=== PATIENT | female | born 1935 ===

== ENCOUNTER 2021-04-16 15:21 | Outpatient (CLI) | payer MEDICARE, BC ==
[~2021-04-16] VITALS: Ht 167.6 cm; Wt 64.8 kg
[2021-04-16] MEDS ORDERED: CALCIUM CARBON650 M2 PO (15:48)
[2021-04-16] MEDS ORDERED: MASON NATURAL2000 IU PO (15:49)
[2021-04-16] MEDS ORDERED: PARCOPA 25/101 UDTAB PO (15:51)
[2021-04-16 15:53] VITALS: BP 135/64; PULSE 56; TEMP 98.1
[2021-04-16] MEDS ORDERED: LEVOXYL0.112 MG PO (16:26)
[2021-04-16] MEDS ORDERED: NATURAL IRON65 MG PO (16:26)
[2021-04-16] MEDS ORDERED: NORVASC 10MG10 MG PO (16:27)
[2021-04-16] MEDS ORDERED: B COMPLEX & B121 TAB PO (16:28)
== END 2021-04-16 16:29 | disposition home or self-care (01) ==
LOC: EUO 15:21
DX: M81.0 Age-related osteoporosis without current pathological fracture (principal)
CPT/HCPCS: J0897

== ENCOUNTER 2021-08-15 10:10 | Outpatient (CLI) | payer MEDICARE, BC ==
[2021-08-15] VITALS (7 sets, daily range): BP systolic 122–129; BP diastolic 51–62; PULSE 56–67; TEMP 99.5
[~2021-08-15] VITALS: Ht 167.6 cm; Wt 68.0 kg
[~2021-08-15 10:10] MED LIST: B COMPLEX & B121 TAB PO; CALCIUM CARBON650 M2 PO; LEVOXYL0.112 MG PO; MASON NATURAL2000 IU PO; NATURAL IRON65 MG PO; NORVASC 10MG10 MG PO; PARCOPA 25/101 UDTAB PO
[2021-08-15] MEDS ORDERED: CALTRATE-600 W600 MG PO (11:43)
--- NOTE | 2021-08-15 13:09 | NUR ---
Pt tolerated infusion without issue. She was assisted to restroom prior to departing. 1 hr obs time completed. INT Dc'd with catheter intact. She was assisted out to web developer's car by wheelchair.
[2021-08-16] MEDS ORDERED: SYNTHROID0.1 MG/TAB PO (20:22)
== END 2021-08-15 13:44 | disposition home or self-care (01) ==
LOC: EUO 10:10
DX: J02.9 Acute pharyngitis, unspecified (principal)
CPT/HCPCS: Q0244

== ENCOUNTER 2021-08-16 14:25 | Observation (INO) | payer MEDICARE, BC ==
[~2021-08-16] VITALS: Ht 167.6 cm; Wt 64.7 kg
[~2021-08-16 14:25] MED LIST changes: +CALTRATE-600 W600 MG PO
[2021-08-16 14:44] LABS: HEMOGLOBIN 11.6 g/dl (12.5-16.0); MEAN CELL VOLUME 99 fl (80.0-100.0); MEAN CORPUSCULAR HEMOGLOBIN 33 pg (27.0-31.0); MEAN CORPUSCULAR HGB CONC 33 g/dl (33.0-37.0); MEAN PLATELET VOLUME 9.5 fl (7.4-10.4); PLATELET COUNT 226 K/mm3 (130-400); RED BLOOD COUNT 3.51 M/mm3 (4.10-5.30); REDCELL DISTRIBUTION WIDTH-CV 12.7 % (11.5-14.5)
[2021-08-16 14:46] LABS: HEMATOCRIT 34.7 % (37.0-47.0)
[2021-08-16 15:03] LABS: ALBUMIN 2.8 gm/dL (3.4-4.8); BILIRUBIN,TOTAL 0.5 mg/dL (0.2-1.2); CREATININE, serum 1.3 mg/dL (0.57-1.11); POTASSIUM 4.2 mmol/L (3.5-4.5); TOTAL PROTEIN 6.4 gm/dL (6.2-8.1)
[2021-08-16 15:09] LABS: BAND 2 % (0-10); LYMPHOCYTE 18 % (20.0-51.0); NEUTROPHILS 78 % (42.0-75.2); PLATELET ESTIMATE NORMAL (NORMAL)
[2021-08-16 15:10] LABS: ARTERIAL BLD GAS O2 SATURATION 92.6 % (92-100); ARTERIAL BLOOD GAS BASE EXCESS 1.4 (-2-2); ARTERIAL BLOOD GAS PCO2 32.2 mmHg (35-45); ARTERIAL BLOOD GAS PO2 63.1 mmHg (80-100); ARTERIAL BLOOD GAS pH 7.49 (7.35-7.45)
[2021-08-16 19:52] LABS: COLLECTION METHOD CLEAN CATCH
[2021-08-16 20:01] VITALS: BP 120/56; PULSE 59; TEMP 98.4
[2021-08-16 20:02] LABS: PH 5 (5-8); URINE APPEARANCE Hazy; URINE BACTERIA Rare /hpf; URINE BILIRUBIN Negative (NEGATIVE); URINE BLOOD Negative (NEGATIVE); URINE COLOR Yellow; URINE GLUCOSE Negative (NEGATIVE); URINE KETONE Trace (NEGATIVE); URINE LEUKOCYTE ESTERASE 2+ (NEGATIVE); URINE NITRATE Positive (NEGATIVE); URINE PROTEIN(semi-quant) Negative (NEGATIVE); URINE RBC 0-2 /hpf; URINE UROBILINOGEN Negative (NEGATIVE)
[2021-08-16] MEDS ORDERED: SYNTHROID0.1 MG/TAB PO (20:22)
--- NOTE | 2021-08-16 21:52 | NUR ---
Patient arrived to medical unit from ER at approximately 1999. Alert and oriented. Denies pain and discomfort. Patient has parkinsons and is slow to respond at times, and also hard of hearing. Peripheral INT to right forearm. LS CTA in upper lobes, diminished in lower. Denies SOB and dyspnea. Telemetry in place. Went over med rec with daughter, and notified RODRIGO Salazar that it was up to date. Voices no questions, needs, or concerns at this time. Daughter CARLY Chandler updated on patient as well. (daughter is also a patient in the hospital at this time)
[2021-08-16 22:27] VITALS: BP 122/60; PULSE 60; TEMP 97.6; TEMP 98.6
[2021-08-17 05:07] VITALS: BP 120/53; PULSE 59; TEMP 97.7
--- NOTE | 2021-08-17 05:53 | NUR ---
Patient continues on room air. Denies having pain and discomfort. IV fluids continue per orders. In bed with call light within reach.
--- NOTE | 2021-08-17 12:01 | NUR ---
THIS RN IS TAKING OVER CARE FOR THIS PT. REPORT RECEIVED FROM JERAMY ALVARADO.
[2021-08-17 12:22] VITALS: BP 126/62; PULSE 60; TEMP 98.3
[2021-08-17 12:55] LABS: CALCIUM 8.1 mg/dL (8.4-10.2); CREATININE, serum 0.91 mg/dL (0.57-1.11); POTASSIUM 4.4 mmol/L (3.5-4.5)
[2021-08-17 16:00] VITALS: BP 119/59; PULSE 66; TEMP 97.6
--- NOTE | 2021-08-17 16:21 | NUR ---
SUSHANT called daughter Blanca [phone] who is also patient's DPOA-HC to complete intake. Daughter stated her mother just recently moved into her home in [facility] from [place]. PCP is Dr. Mathew and pharmacy is [facility]. Daughter states that she is currently paying for a private service resource to assist with her mom in her home. She also states that the plan is for her to return back to her home upon DC, unless recommended skilled services are needed. Would like to be in consistent contact with case management team about next steps and care. SUSHANT will continue to follow. DC plan: home with daughter/unless skilled/LTC services are recommended
--- NOTE | 2021-08-17 19:00 | NUR ---
RECEIVED CHANGE OF SHIFT REPORT FROM DAY SHIFT NURSE.
[2021-08-17 21:11] VITALS: BP 116/51; PULSE 60; TEMP 98.1
[2021-08-17 23:41] VITALS: BP 113/43; PULSE 58; TEMP 98
--- NOTE | 2021-08-18 05:00 | NUR ---
PER TELE, TECH REPORTS RHYTHM CHANGED TO AFIB WITH RATES IN 60'S SINCE 429. SEE MEDITECH FOR VS, DENIES CHEST PAIN/SOA WITH LOTS OF PROMPTING FOR ANSWERS, SKIN WARM, NO LABORED RESP EFFORT, COLOR UNCHANGED FROM EARLIER ASSESSMENT.
[2021-08-18 05:14] VITALS: BP 108/48; PULSE 68; TEMP 98.1
[2021-08-18 06:18] LABS: HEMOGLOBIN 10.7 g/dl (12.5-16.0); MEAN CELL VOLUME 99 fl (80.0-100.0); MEAN CORPUSCULAR HEMOGLOBIN 33 pg (27.0-31.0); MEAN CORPUSCULAR HGB CONC 33 g/dl (33.0-37.0); MEAN PLATELET VOLUME 10.3 fl (7.4-10.4); PLATELET COUNT 232 K/mm3 (130-400); RED BLOOD COUNT 3.24 M/mm3 (4.10-5.30); REDCELL DISTRIBUTION WIDTH-CV 12.5 % (11.5-14.5)
[2021-08-18 06:23] LABS: HEMATOCRIT 32.2 % (37.0-47.0)
[2021-08-18 06:54] LABS: CALCIUM 7.9 mg/dL (8.4-10.2); CREATININE, serum 0.78 mg/dL (0.57-1.11); POTASSIUM 4.3 mmol/L (3.5-4.5)
--- NOTE | 2021-08-18 07:10 | NUR ---
CHANGE OF SHIFT REPORT GIVEN TO DAY SHIFT NURSETANO RN.
[2021-08-18 07:21] LABS: BAND 5 % (0-10); LYMPHOCYTE 16 % (20.0-51.0); METAMYELOCYTE 1 % (0-0); NEUTROPHILS 69 % (42.0-75.2); PLATELET ESTIMATE NORMAL (NORMAL)
[2021-08-18 08:24] VITALS: BP 118/63; PULSE 84; TEMP 98
--- NOTE | 2021-08-18 10:26 | NUR ---
NOTIFIED DR. 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
--- NOTE | 2021-08-18 10:28 | NUR ---
PT ALERT, ORIENTED TO PERSON. UNABLE TO ANSWER TO TIME. DISORIENTED TO PLACE AND SITUATION. PT REORIENTED TO BEST OF ABILITY. PT WEAK, UNABLE TO FEED SELF. PT ABLE TO SWALLOW PILLS WITH VERBAL CUES. 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 INSPECTOR ALIGNING NOTED TO BE IN A-FIB NEW OVERNIGHT. PT TREMORS NOTED IN HANDS. PT HAS SOFT ABDOMEN, SENSITIVE TO TOUCH IN LEFT UPPER QUADRANT. PT RIGHT WRIST IV INFILTRATION NOTED. THIS RN AIDED IN FEEDING PT. NO OTHER NEEDS AT THIS TIME.
--- NOTE | 2021-08-18 11:07 | NUR ---
Pt daughter, Geraldine updated on patient status. Verified person of contact in pt chart and DPOA status per social work notes. Privacy password given for future updates. Geraldine states leaving note of patient preferences for food and number ([phone]).
[2021-08-18 11:35] VITALS: BP 113/51; PULSE 74; TEMP 98.1
--- NOTE | 2021-08-18 12:08 | NUR ---
PARTIAL BED BATH GIVEN AND NEW GOWN ON PATIENT.
--- NOTE | 2021-08-18 15:55 | NUR ---
PT/OT are recommending SNF. The patient is observation status and COVID positive. IPR was consulted. Bessie, with IPR, reports that they are able to accept the patient today. SUSHANT contacted and updated the patient's daughter, Geraldine. Geraldine is in agreement to the plan. The patient is to discharge today, 08/18, to [facility]. No additional needs at this time.
[2021-08-18 16:30] VITALS: BP 107/50; PULSE 71; TEMP 98.1
[2021-08-18] MEDS ORDERED: DECADRON6 MG PO (16:41)
[2021-08-18] MEDS ORDERED: ZOFRAN ODT4 MG PO (16:41)
[2021-08-18] MEDS ORDERED: ROCEPHIN VIA1 G/VIAL IV (16:41)
[2021-08-18 16:42] VITALS: BP 115/54
[2021-08-18] MEDS ORDERED: RT Albuterol HFA MDI IH (16:42)
[2021-08-18] MEDS ORDERED: HEPARIN SOD5000 U/ML SQ (16:42)
[2021-08-18] MEDS ORDERED: TYLENOL 325MG325 MG PO (16:42)
[2021-08-18] MEDS ORDERED: MONODOX100 PO (16:42)
--- NOTE | 2021-08-18 16:42 | NUR ---
PT BLOOD PRESSURE LOW ON RIGHT SIDE,107/5, RECHECKED ON LEFT ARM 115/54.
--- NOTE | 2021-08-18 17:02 | NUR ---
AIDED IN PT CALLING DAUGHTER.
--- NOTE | 2021-08-18 17:03 | NUR ---
RECEIVED ORDERS FOR DISCHARGING PT TO IPR STATUS. DISCUSSED WITH DR. STEPHENS AND JAREK EVANGELISTA RN. DISCHARGE PROCESS INITIATED.
== END 2021-08-18 17:04 ==
LOC: COL.ER 14:25 → MEDICAL 19:03 → EDBEDREQTM 19:15 → MEDICAL 08-18 17:04
PROVIDERS: Family Medicine; ADMIT Student in an Organized Health Care Education/Training Program
DX: U07.1 COVID-19 (principal); R63.0 Anorexia; N39.0 Urinary tract infection, site not specified; B96.29 Other Escherichia coli [E. coli] as the cause of diseases classified elsewhere; N17.9 Acute kidney failure, unspecified; G20 Parkinson's disease; I48.91 Unspecified atrial fibrillation; I10 Essential (primary) hypertension; D64.9 Anemia, unspecified; E03.9 Hypothyroidism, unspecified; G73.7 Myopathy in diseases classified elsewhere; Z79.890 Hormone replacement therapy; Z79.899 Other long term (current) drug therapy
CPT/HCPCS: 99233-AI; G0378; J0696; J1100; J1644; J7030; J7120

== ENCOUNTER 2021-08-18 16:42 | Inpatient (IN) | payer MEDICARE, BC ==
[~2021-08-18] VITALS: Ht 165.1 cm; Wt 143.9 kg
[~2021-08-18 16:42] MED LIST changes: +DECADRON6 MG PO; +HEPARIN SOD5000 U/ML SQ; +MONODOX100 PO; +ROCEPHIN VIA1 G/VIAL IV; +RT Albuterol HFA MDI IH; +SYNTHROID0.1 MG/TAB PO; +TYLENOL 325MG325 MG PO; +ZOFRAN ODT4 MG PO
[2021-08-18 18:13] VITALS: BP 108/60; PULSE 73; TEMP 98.5
[2021-08-18 19:50] VITALS: BP 109/61; PULSE 79; TEMP 98.6
--- NOTE | 2021-08-18 20:01 | NUR ---
Pt admitted to IPR status. Admission assessment, med rec, infectious disease screen, and covid-19 screen completed to best of ability. Pt alert and oriented x3. Pt disoriented to situation. Pt has contractures of bilateral hands and tremors noted. Pt lungs diminished in bases, upper lobes clear. Pt on tele, in afib. Provider aware of afib. Pt coccyx pink, blanchable, discoloration noted from previous pressure injury. Call light within reach. Pt family to be updated on new privacy code.
--- NOTE | 2021-08-18 20:08 | NUR ---
Geraldine, daughter called for pt update. Old security password obtained before update, new passcode given.
[2021-08-18 23:31] VITALS: BP 124/61; PULSE 69; TEMP 98.5
--- NOTE | 2021-08-18 23:43 | NUR ---
Patient assessed around 2129. Total assist, checked, changed, and repositioned in bed. Did not want to get onto left side, lots of encouragement needed. Bottom is red, and has history of pressure ulcers to coccyx. HRI, telemetry in place. LS CTA in upper lobes, diminished in lower. Respirations even and unlabored. INT to left forearm. Voices no questions, needs, or concerns at this time. Resting in bed with call light within reach. Bed alarm on.
[2021-08-19 04:42] VITALS: BP 116/65; PULSE 72; TEMP 98.6
--- NOTE | 2021-08-19 05:53 | NUR ---
Patient has been resting in bed with call light within reach. Denies pain and discomfort. Checked, changed, and repositioned in bed. High fall risk precautions in place.
[2021-08-19 08:29] VITALS: BP 120/62; PULSE 82; TEMP 97.6
[2021-08-19 12:42] VITALS: BP 121/74; PULSE 74; TEMP 97.6
--- NOTE | 2021-08-19 16:56 | NUR ---
Drop Wire Aligner contacted patient's daughter, Blanca (ph#[phone]) to complete intake as patient is new to [facility]. Blanca advised that patient lives with her and moved here from [place] in March. Patient sees Dr. Mathew for primary care and obtains medications from [facility]. Patient has a rollator, front wheeled walker, cane, wheelchair, and bedside commode. Blanca advised her son is wheelchair bound so they have a good set up with DME. Blanca advised that patient has a privately hired caregiver that stays with her during the day while Blanca is at work. Blanca reported that patient needs assistance with ADLS which she receives from her caregiver. Blanca would like to know if she can bring patient's rollator to the hospital for patient to work with as well as if staff are keeping an eye on patient's pressure sores on her "sitting area". SW to follow up.
--- NOTE | 2021-08-19 17:43 | NUR ---
Patient has not eaten much today. Refuses to feed herself and will only take 1 bite of food when being fed. Patient not communicating well and is extremely CACHIL DEHE. Patient worked with PT and was a max assist. Also incontinent and urinated all over the floor while transferring from bed to recliner. Patient only sat in recliner for a few minutes before needing to go back to bed.
[2021-08-19 17:56] VITALS: BP 131/65; PULSE 86; TEMP 98.3
[2021-08-19 20:41] VITALS: BP 126/69; PULSE 80; TEMP 98.7
--- NOTE | 2021-08-19 21:18 | NUR ---
Patient assessed around 2049. Patient incontinent of bladder. Patient is checked, changed, and repositiond in bed every two hours and as needed. INT to left forearm. Patient does moan and groan with any movement in bed. Patient has moist cough. Unable to produce sputum to be observed. LS CTA in upper lobes, diminished in lower. Respirations even, and unlabored. HRR. BSAx4. No edema. Voices no questions, needs, or concerns at this time. In bed with call light within reach. High fall risk precautions in place.
[2021-08-20 05:37] VITALS: BP 136/77; PULSE 99; TEMP 98.1
--- NOTE | 2021-08-20 05:55 | NUR ---
Patient checked, changed, and repositioned in bed during the night. Given PRN APAP once for pain. In bed with call light within reach. High fall risk precautions in place.
[2021-08-20 15:51] VITALS: BP 113/85; PULSE 86; TEMP 98.4
--- NOTE | 2021-08-20 16:45 | NUR ---
Material Spreader contacted Blanca to review team conference notes. SUSHANT advised tentative DC date is set for 08/26/21. Blanca advised it will be important for patient to be able to get up to the bathroom before discharge home. SUSHANT advised Blanca that per notes, patient has been incontinent, but did get up and walk today. SUSHANT scheduled family meeting for Wednesday at 1300. Blanca is also going to bring up patient's rollator today.
--- NOTE | 2021-08-20 17:09 | NUR ---
Patient has stayed in bed all day. Annelise care provided and purewik placed. Patient did a bit better today with feeding herself and communicating.
[2021-08-20 19:45] VITALS: BP 122/71; PULSE 81; TEMP 98
--- NOTE | 2021-08-20 22:02 | NUR ---
Patient sitting up in bed and eating dinner upon enter the room. PCT in the room and assist with feeding. Patient ate very little food. Patient states not hungry. Patient very hard of hearing. This nurse communicated with nurse by writing on the board. Patient alert and oriented. Able to anser orientation questions properly. Purewick in place and draining urine well. Checked brief and dry and clean. Offered bed bath tonight but patient refused. Per patient, she had bed bath this morning when they changed her diaper. All scheduled meds given per DEC. Call light in reach. Will continue to monitor.
[2021-08-21 04:07] VITALS: BP 153/81; PULSE 74; TEMP 97.5
[2021-08-21 09:16] VITALS: BP 132/79; PULSE 71; TEMP 97.4
--- NOTE | 2021-08-21 10:43 | NUR ---
PT ALERT, DISORIENTED TO SITUATION. PT HAS TREMORS NOTED IN HANDS, SOME CONTRACTURES. PT HAS DIMINISHED LUNG SOUNDS AUSCULTATED IN ALL LOBES. PT STATES BEING UNABLE TO HEAR OR SEE, CHARGE NURSE NOTIFIED. ASSESSED PATIENT, ABLE TO TRACK FINGERS AND RESPOND TO VERBAL CUES AND QUESTIONS. PT PULSES 2+ IN ALL EXTREMITIES, CAP REFILL <3S. PT STATES RIGHT ANKLE TENDER TO TOUCH. PT BREAKFAST PROVIDED, CALL LIGHT WITHIN REACH. NO OTHER NEEDS AT THIS TIME.
--- NOTE | 2021-08-21 12:16 | NUR ---
PT FLOATED ON PILLOWS TO ALLEVIATE PRESSURE ON COCCYX.
[2021-08-21 14:07] VITALS: BP 122/77
--- NOTE | 2021-08-21 16:03 | NUR ---
PT JHOANA-CARE PROVIDED, NEW PUREWICK IN PLACE. PT PILLOW REMOVED FROM LEFT HIP, PILLOW STILL UNDER RIGHT HIP.
--- NOTE | 2021-08-21 19:28 | NUR ---
Pt continuing on plan of care. No significant changes noted this shift. Pt continues on room air. Pt purewick in place. Encouraged patient to assist with ADLs. Report given to nightman.
[2021-08-21 20:25] VITALS: BP 133/85; PULSE 64; TEMP 97.8
--- NOTE | 2021-08-21 21:25 | NUR ---
Patient assessed around 2049. Alert and oriented. Shows s/sx of pain and discomfort with any movement. Given PRN APAP Does complain of SOB. Repositioned in bed, and HOB elevated. 94% on room air. LS diminished. Moist cough, unable to produce sputum. HR-irregular. Purewick external catheter in place, cheryl, clear urine. Redness to bottom continues, blanchable. In bed with call light within reach. High fall risk precautions in place.
[2021-08-21 23:49] VITALS: BP 136/81; PULSE 75; TEMP 97.7
[2021-08-22 04:19] VITALS: BP 142/88; PULSE 77; TEMP 98.4
--- NOTE | 2021-08-22 05:43 | NUR ---
Patient has been repositioned this shift. Has purewick external catheter. In bed with call light within reach. High fall risk precautions in place.
--- NOTE | 2021-08-22 08:01 | NUR ---
PT SITTING UP IN BED AT THIS TIME. DENIES ANY NEEDS. VSS.
--- NOTE | 2021-08-22 15:07 | NUR ---
Flag Signaler participated in family meeting with the therapy team, IPR Director and patient's daughter, Blanca. Bre IPR Director opened the meeting and then the therapy team reviewed patient's progress. Blanca was advised that patient has been dependent with ADLS and needs max assistance from 1-2 people. Blanca reports that there are two people at home with patient at all times and goal is to get patient home. Blanca would be open to Home Health services upon discharge. SUSHANT followed up with Blanca after the meeting and she advised she is considering Home Health vs SNF but does not want to make a decision today. Blanca is open to having referrals sent to SNF as she continues to think about this decision. Blanca would like referrals sent to both [facility] and [facility] with [facility] likely being her first preference. SUSHANT contacted both facilities and referrals were faxed.
[2021-08-22 18:00] VITALS: BP 135/78; PULSE 73; TEMP 97.7
--- NOTE | 2021-08-22 19:07 | NUR ---
REPORT GIVEN TO JERAMY BARRY
[2021-08-23 05:32] VITALS: BP 132/85; PULSE 75; TEMP 98
--- NOTE | 2021-08-23 05:42 | NUR ---
Rested quietly throughout night, repositioned q 2 hours offloading pressure areas, incontinent care provided, denies pain, call solano w/i reach.
[2021-08-23 08:43] VITALS: BP 113/69; PULSE 90; TEMP 98.7
--- NOTE | 2021-08-23 09:33 | NUR ---
Patient awake and resting in bed upon entry into room. Scheduled medications given. Shift assessment preformed. Scheduled medications given. Patient A&Ox4 but responses are delayed. Patient denies any pain, discomfort, SOA, or further needs at this time. Patient repositioned. Call light in reach. Fall precautions in place. VSS.
[2021-08-23 16:31] VITALS: BP 134/65; PULSE 82; TEMP 98.5
--- NOTE | 2021-08-23 17:31 | NUR ---
Patient has had an ok day. Purewick in place. Patient turned Q2 hours. Patient A&O, but slow to respond. VSS. Patient denies any pain, discomfort, SOA, or further needs at this time. Call light in reach. Fall precautions in place.
[2021-08-24 05:25] VITALS: BP 148/85; PULSE 56; TEMP 97.6
--- NOTE | 2021-08-24 10:36 | NUR ---
Scheduled medications given. Shift assessment preformed. Patient A&Ox4, but slow to respond. Patient repositioned off of bony prominences. Moaning noted with movement. Reddened sacral region noted, it is blanchable. Patient not currently requiring any O2. No signs of further pain, discomfort, or needs at this time. Call light in reach. Fall precautions in place.
[2021-08-24 12:13] VITALS: BP 148/85; PULSE 56; TEMP 97.6
--- NOTE | 2021-08-24 12:35 | NUR ---
Patient transfering to [facility]. Report given to JERAMY Shaikh. VSS. Patient A&O.
--- NOTE | 2021-08-24 16:00 | NUR ---
Patient refused to eat and seems to fall in the category of failure to strive. Patient also refused to take medication. Patient has slurred speech and it is difficult to understand her at times. Patient also refuses to get out of bed and will yell when trying to move her or touch her in certain area. Will continue to monitor throughout shift.
[2021-08-24 18:00] VITALS: BP 147/70; PULSE 65; TEMP 97.7
--- NOTE | 2021-08-24 18:52 | NUR ---
RECEIVED CHANGE OF SHIFT REPORT FROM DAY SHIFT NURSE.
--- NOTE | 2021-08-24 19:27 | NUR ---
ATTEMPTED TO FEED PATIENT, WITH PATIENT REFUSING TO EAT ANY MORE FOOD AFTER TAKING 3 BITES OF ICE CREAM, HAS REFUSED TO DRINK FROM STRAW IN CUP OF LIQUIDS.
--- NOTE | 2021-08-24 22:15 | NUR ---
OBSERVED PATIENT NOT ATTEMPTING TO FEED SELF, WILL DRINK IF CUP HELD UP FOR PATIENT AND PATIENT CUED TO DRINK FROM STRAW WITH FREQUENT REMINDERS OF SUCK ON STRAW, ABLE TO SWALLOW PILLS ONE AT A TIME. DOES NOT FOLLOW COMMANDS, YELLS WHEN TOUCH LIGHTLY, DURING DIAPER CHANGING/PERICARE, POSTURING STIFF, DOES NOT ACTIVELY MOVE EXTREMITIES, BOTH UPPER AND BOTH LOWER EXTREMITIES. DOES NOT LOOK AT STAFF, INITIATE OR MAINTAIN EYE CONTACT WITH STAFF, DOES NOT VERBALLY ANSWER QUESTIONS WHEN ASKED IF IN PAIN OR IF SHE WILL TAKE HER PILLS. OBSERVED OBSERVED PATIENT MUMBLES SOUNDS THAT ARE NOT SPOKEN WORDS SO FAR THIS SHIFT. PATIENT INCONTINENT OF URINE, DID NOT ANSWER TO QUESTIONS IF SHE WAS WET IN HER DIAPERS OR DRY.
--- NOTE | 2021-08-25 00:22 | NUR ---
PATIENT REPOSITIONED. REFUSED TO DRINK OUT OF STRAW IN CUP FOR WATER INTAKE. YELLED OUT WITH TURNING AND DIAPER CHECK, OBSERVED NO INCONTINENT URINE OUTPUT AT THIS TIME.
[2021-08-25 04:26] VITALS: BP 139/86; PULSE 82; TEMP 98.6
--- NOTE | 2021-08-25 06:45 | NUR ---
Report received from JERAMY Luis. PT in bed resting with eyes closed, will ocntinue to monitor.
--- NOTE | 2021-08-25 07:09 | NUR ---
CHANGE OF SHIFT REPORT GIVEN TO DAY SHIFT NURSE, YASIR DESHPANDE.
--- NOTE | 2021-08-25 09:36 | NUR ---
Assessment charte. Pt in bed resting, had to wake up to get her ready for breakfast. Incontinent of urine in brief, changed and cleaned up and pt does appear to have some yeast in brief and under breasts, excoriated as well. Resting in bed, did wake up and had some leftover food in mouth possibly from supper last night. Only would drink juice and eat 3 grapes for breakfast. Will conitnue to monitor.
--- NOTE | 2021-08-25 12:49 | NUR ---
SW contacted the patient's daughter, Geraldine, to follow up on preference for SNF vs home health. Geraldine reports that she has decided to pursue SNF, but is unsure now on who her preference would be. SW reviewed Medicare.gov's list of SNFs in the [facility]. Geraldine reports that her first preference now is [facility] and her second preference is [facility]. SW read the IM form outloud to Geraldine. Geraldine verbalized understanding and gave SW approval to sign the form on her behalf. SW notified and faxed updates to [facility]. Awaiting screens. *Discharge plan: SNF*
--- NOTE | 2021-08-25 12:56 | NUR ---
Clara, at [facility], reports that they are able to accept the patient for a skilled stay tomorrow. SW updated the patient's daughter, Geraldine. Geraldine is in agreement with the discharge plan.
[2021-08-25 15:57] VITALS: BP 121/60; PULSE 86; TEMP 98.9
--- NOTE | 2021-08-25 18:23 | NUR ---
Pt turned q2h to offset backside over shift. Desenex powder applied to folds to help with moisture. Pt able to tolerate some PO intake with maximum assistance during feeds. Incontinent of urine all day. No BM. Will give report to nightshift nurse who will resume care.
--- NOTE | 2021-08-25 20:18 | NUR ---
Patient assessed around 1914. Patient checked, changed, and repositioned in bed. Incontinent of bladder. Perineal hygiene care provided. Mepilex to coccyx CDI for protection. Desenex powder applied to groin folds, and breast folds for some redness. Assisted with oral hygiene. Patient has facial grimacing and moaning with repositioning in bed. Offered APAP, but declined. Patient in bed with call light within reach. High fall risk precautions in place.
[2021-08-26 03:57] VITALS: BP 118/63; PULSE 84; TEMP 97.9
--- NOTE | 2021-08-26 05:50 | NUR ---
Patient has been checked, changed, and repositioned in bed during the night. Voices no questions, needs, or concerns at this time. In bed with call light within reach.
--- NOTE | 2021-08-26 06:45 | NUR ---
Report received from JERAMY Weiss. Patient is resting in bed. Call light and bedside table are within reach. Will continue to monitor patient throughout shift.
[2021-08-26] MEDS ORDERED: DULCOLAX S10 MG/SUPP RC (08:28)
[2021-08-26] MEDS ORDERED: COLACE 100100 MG/CAP PO (08:28)
[2021-08-26] MEDS ORDERED: DESENEX TP (08:29)
[2021-08-26] MEDS ORDERED: RT Albuterol HFA MDI IH (08:29)
--- NOTE | 2021-08-26 10:13 | NUR ---
The patient is to discharge today, 08/26, to [facility] for a skilled stay. Transportation was scheduled at 1100, via [facility]. SW informed the patient's daughter, Geraldine, and the RN of the time. They were both agreeable to the time. No additional needs at this time.
== END 2021-08-26 12:30 | DRG 91 ==
LOC: MEDICAL 17:07
PROVIDERS: ADMIT Internal Medicine
DX: G72.81 Critical illness myopathy (principal); U07.1 COVID-19; J12.82 Pneumonia due to coronavirus disease 2019; N39.0 Urinary tract infection, site not specified; N17.9 Acute kidney failure, unspecified; G20 Parkinson's disease; D64.89 Other specified anemias; I48.91 Unspecified atrial fibrillation; R63.0 Anorexia; E03.9 Hypothyroidism, unspecified; I10 Essential (primary) hypertension; B96.20 Unspecified Escherichia coli [E. coli] as the cause of diseases classified elsewhere; R26.89 Other abnormalities of gait and mobility; Z88.0 Allergy status to penicillin; Z79.2 Long term (current) use of antibiotics; Z73.6 Limitation of activities due to disability; Z79.899 Other long term (current) drug therapy; Z68.27 Body mass index [BMI] 27.0-27.9, adult
CPT/HCPCS: 99222-AI; 99232-AI; J0690; J1644; J8540

== ENCOUNTER 2022-01-12 13:40 | Outpatient (CLI) | payer MEDICARE, BC ==
[~2022-01-12] VITALS: Ht 165.1 cm; Wt 68.1 kg
[~2022-01-12 13:40] MED LIST changes: +COLACE 100100 MG/CAP PO; +DESENEX TP; +DULCOLAX S10 MG/SUPP RC
[2022-01-12 14:04] VITALS: BP 132/75; PULSE 91; TEMP 98.7
== END 2022-01-12 18:12 | disposition home or self-care (01) ==
LOC: EUO 13:40
DX: M81.0 Age-related osteoporosis without current pathological fracture (principal)
CPT/HCPCS: J0897

== ENCOUNTER → 2022-02-17 | Outpatient (CLI) | payer MEDICARE, BC | LOC: COL.RAD 01-15 13:15 | DX: I67.82 Cerebral ischemia (principal); J34.89 Other specified disorders of nose and nasal sinuses; G31.9 Degenerative disease of nervous system, unspecified; R20.2 Paresthesia of skin ==